=== PATIENT | male | born 1950 | race Caucasian/White ===

== ENCOUNTER → 2023-11-26 06:25 | Outpatient (REF) | payer MEDICARE, OTHER, SELFPAY ==
[2023-11-26 08:26] LABS: Calcium 10.4 mg/dl (8.4-10.2)
[2023-11-27 09:14] LABS: Intact PTH 49.7 pg/ml (13.6-85.8)
== END ==
LOC: RAD 06:25
PROVIDERS: ATTENDING PHYSICIAN Physician Assistant
DX: E83.52 Hypercalcemia (principal); K59.09 Other constipation
CPT/HCPCS: 36415; 74018; 83970

== ENCOUNTER → 2024-02-14 06:23 | Outpatient (REF) | payer MEDICARE, OTHER, SELFPAY ==
[2024-02-14 07:29] LABS: ALT (SGPT) 20 U/L (0-50); AST (SGOT) 22 U/L (17-59); Albumin 4.5 g/dl (3.5-5.0); Alkaline Phosphatase 76 U/L (38-126); Blood Urea Nitrogen 23 mg/dl (9-20); Calcium 10.8 mg/dl (8.4-10.2); Carbon Dioxide 22 mmol/L (22-30); Chloride 104 mmol/L (98-107); Glucose 150 mg/dl (70-99); HDL Cholesterol 40 mg/dl; LDL Cholesterol, Calculated 56 mg/dl; Potassium 5.3 mmol/L (3.5-5.1); Sodium 138 mmol/L (135-145); Total Bilirubin 0.4 mg/dl (0.2-1.3); Total Cholesterol 128 mg/dl (50-199); Triglyceride 163 mg/dl (10-149); Very Low Density Lipoprotein 32 mg/dl (0-30); eGFR > 60.00
[2024-02-14 07:46] LABS: Microalbumin, Random Urine 10.2 mg/dl (0.6-1.7); Microalbumin/creatinine Ratio 207.7 mg/g
[2024-02-14 09:30] LABS: Glycohemoglobin (HgbA1c) 7.5 % (4.0-5.6)
== END ==
LOC: REG 06:23
PROVIDERS: ATTENDING PHYSICIAN Physician Assistant
DX: E11.65 Type 2 diabetes mellitus with hyperglycemia (principal); E78.2 Mixed hyperlipidemia
CPT/HCPCS: 36415; 80053; 80061; 82043; 82570; 83036

== ENCOUNTER → 2024-02-18 07:21 | Outpatient (REF) | payer MEDICARE, OTHER, SELFPAY ==
[2024-02-18 09:02] LABS: ALT (SGPT) 17 U/L (0-50); AST (SGOT) 20 U/L (17-59); Albumin 4.4 g/dl (3.5-5.0); Alkaline Phosphatase 75 U/L (38-126); Blood Urea Nitrogen 22 mg/dl (9-20); Calcium 10.7 mg/dl (8.4-10.2); Carbon Dioxide 24 mmol/L (22-30); Chloride 106 mmol/L (98-107); Glucose 156 mg/dl (70-99); Sodium 140 mmol/L (135-145); Total Bilirubin 0.4 mg/dl (0.2-1.3); Total Protein 7.8 g/dl (6.3-8.2); eGFR > 60.00
[2024-02-18 09:11] LABS: Potassium 5.6 mmol/L (3.5-5.1)
[2024-02-18 09:16] LABS: Vitamin D, 25-OH*** 40.1 ng/mL (30-80)
[2024-02-18 09:35] LABS: TSH Reflex To Free T4 5.36 uIU/ml (0.47-4.68)
[2024-02-18 10:04] LABS: Free T4 1.07 ng/dl (0.78-2.19)
[2024-02-18 16:07] LABS: Intact PTH 52.4 pg/ml (13.6-85.8)
== END ==
LOC: REG 07:21
PROVIDERS: ATTENDING PHYSICIAN Physician Assistant
DX: E83.52 Hypercalcemia (principal); E87.5 Hyperkalemia
CPT/HCPCS: 36415; 80053; 82306; 83970; 84439; 84443

== ENCOUNTER → 2024-11-10 08:55 | Outpatient (REF) | payer MEDICARE, OTHER, SELFPAY ==
[2024-11-10 10:20] LABS: ALT (SGPT) 15 U/L (0-50); AST (SGOT) 20 U/L (17-59); Albumin 4.4 g/dl (3.5-5.0); Alkaline Phosphatase 60 U/L (38-126); Blood Urea Nitrogen 18 mg/dl (9-20); Calcium 9.8 mg/dl (8.4-10.2); Carbon Dioxide 26 mmol/L (22-30); Chloride 104 mmol/L (98-107); Glucose 131 mg/dl (70-99); HDL Cholesterol 55 mg/dl; LDL Cholesterol, Calculated 65 mg/dl; Potassium 4.3 mmol/L (3.5-5.1); Sodium 140 mmol/L (135-145); Total Bilirubin 0.5 mg/dl (0.2-1.3); Total Cholesterol 148 mg/dl (50-199); Total Protein 7.2 g/dl (6.3-8.2); Triglyceride 143 mg/dl (10-149); Very Low Density Lipoprotein 28 mg/dl (0-30); eGFR > 60.00
[2024-11-10 16:37] LABS: Microalbumin, Random Urine > 57.0 mg/dl (0.6-1.7)
== END ==
LOC: REG 08:55
PROVIDERS: ATTENDING PHYSICIAN Family Medicine
DX: E11.59 Type 2 diabetes mellitus with other circulatory complications (principal); E78.2 Mixed hyperlipidemia; I10 Essential (primary) hypertension
CPT/HCPCS: 36415; 80053; 80061; 82043; 82570; 83036

== ENCOUNTER → 2025-05-15 08:37 | Outpatient (REF) | payer MEDICARE, OTHER, SELFPAY ==
[2025-05-15 11:02] LABS: PSA, Total - Diagnostic 0.40 ng/ml (0.0-4.0)
== END ==
LOC: REG 08:37
PROVIDERS: ATTENDING PHYSICIAN Specialist; FAMILY PHYSICIAN Family Medicine
DX: C61 Malignant neoplasm of prostate (principal)
CPT/HCPCS: 36415; 84153

== ENCOUNTER → 2025-06-14 07:29 | Outpatient (REF) | payer MEDICARE, OTHER, SELFPAY ==
[2025-06-14 07:51] LABS: Urine Character Bloody (Clear)
[2025-06-14 08:29] LABS: Urine Squamous Cell None seen /LPF (Few)
[2025-06-14 08:30] LABS: Urine Red Blood Cell >100 /HPF (0-2)
[2025-06-14 08:32] LABS: Urine White Cell 0-2 /HPF (0-5)
== END ==
LOC: REG 07:29
PROVIDERS: ATTENDING PHYSICIAN Specialist; FAMILY PHYSICIAN Family Medicine
DX: N39.0 Urinary tract infection, site not specified (principal)
CPT/HCPCS: 81003; 81015; 87086; 87147; 87186

== ENCOUNTER → 2025-09-04 06:51 | Outpatient (REF) | payer MEDICARE, OTHER, SELFPAY ==
[2025-09-04 08:30] LABS: ALT (SGPT) 13 U/L (0-50); AST (SGOT) 15 U/L (17-59); Albumin 4.4 g/dl (3.5-5.0); Alkaline Phosphatase 59 U/L (38-126); Blood Urea Nitrogen 19 mg/dl (9-20); Calcium 10.1 mg/dl (8.4-10.2); Carbon Dioxide 24 mmol/L (22-30); Chloride 105 mmol/L (98-107); Glucose 127 mg/dl (70-99); Potassium 4.2 mmol/L (3.5-5.1); Sodium 138 mmol/L (135-145); Total Protein 6.9 g/dl (6.3-8.2); Very Low Density Lipoprotein 29 mg/dl (0-30); eGFR > 60.00
[2025-09-04 08:39] LABS: HDL Cholesterol 46 mg/dl; LDL Cholesterol, Calculated 57 mg/dl
[2025-09-04 11:02] LABS: Glycohemoglobin (HgbA1c) 6.1 % (4.0-5.9)
== END ==
LOC: REG 06:51
PROVIDERS: ATTENDING PHYSICIAN Family Medicine; REFERRING PHYSICIAN Specialist
DX: E11.59 Type 2 diabetes mellitus with other circulatory complications (principal)
CPT/HCPCS: 36415; 80053; 80061; 83036

== ENCOUNTER 2025-10-12 21:27 | Inpatient (IN) | payer MEDICARE, OTHER, SELFPAY ==
[2025-10-12] VITALS (10 sets, daily range): BP systolic 121–168; BP diastolic 70–106; BMI 33.6; BMI 33.5
[2025-10-12 14:50] LABS: ALT (SGPT) 14 U/L (0-50); AST (SGOT) 19 U/L (17-59); Albumin 3.6 g/dl (3.5-5.0); Alkaline Phosphatase 74 U/L (38-126); Blood Urea Nitrogen 32 mg/dl (9-20); Calcium 9.9 mg/dl (8.4-10.2); Carbon Dioxide 23 mmol/L (22-30); Chloride 103 mmol/L (98-107); Glucose 178 mg/dl (70-99); Lipase 14 U/L (23-300); Potassium 4.3 mmol/L (3.5-5.1); Sodium 133 mmol/L (135-145); Total Protein 6.8 g/dl (6.3-8.2); eGFR > 60.00
[2025-10-12 14:52] LABS: Hematocrit 35.8 % (39.0-52.0); Hemoglobin 12.0 g/dL (13.0-18.0); Mean Corp Hgb Conc. 33.5 g/dL (33.0-37.0); Mean Corpuscular Volume 91.3 fL (80.0-94.0); Nucleated Red Blood Cells % 0 % (-); Platelet Count 183 10^3/uL (130-400); Red Cell Dist. Width 14.2 % (11.5-14.5)
[2025-10-12 14:59] LABS: COVID-19 Antigen Negative (Negative)
[2025-10-12 17:30] LABS: Urine Character Cloudy (Clear)
--- NOTE | 2025-10-12 17:31 | ED.GENMED ---
History of Present Illness
General
Chief Complaint: Fever
Source: patient
Exam Limitations: none
Time Seen by Provider: 10/12/25 16:33
Nursing documentation reviewed up to this point in time: agreed with
History of Present Illness
History of Present Illness:
The patient is a 74-year-old man who has a neurogenic bladder and self caths. Patient reports 3 days of decreased appetite, generalized weakness and chills. Patient last had Tylenol around 10 AM this morning. Patient reports bilateral low back
pain. His reports his urine is very foul-smelling which is unusual. He denies worsening cough or shortness of breath. He denies headache and sore throat.
Past History
Past History
ED Past Medical History: CVA, HTN, Hypercholesterolemia and NIDDM
ED Past Surgical History: Other (Hernia)
Social History
Tobacco: Non-smoker
Alcohol: None
Drug: None
Personal:
Living: with family
Employment: Retired
Family History
Family History: Other
Review of Systems
Review of Systems
Allergies reviewed?: Yes
All Other Systems: ROS reviewed and negative except as documented in HPI and ROS
Constitutional: Reports fever, fatigue and chills
EENT: Reports no symptoms
Respiratory: Reports no symptoms
Cardiac: Reports no symptoms
ABD/GI: Reports nausea and anorexia
: Reports other (Foul-smelling urine)
Musculoskeletal: Reports no symptoms
Skin: Reports no symptoms
Neurological: Reports no symptoms
Endocrine: Reports no symptoms
Hematologic/Lymphatic: Reports no symptoms
Psychiatric: Reports no symptoms
Phy Exam
Physical Exam
Physical Exam:
Physical Exam
General: no apparent distress, not acutely ill
Neck: supple. no meningeal signs. normal psoterior pharynx
Heart: Tachycardic, irregular
Lungs: no acute respiratory distress. clear bilaterally
Abdomen: normal bowel sounds. not tender. no CVAT
Neuro: alert and oriented. no focal neurological deficits
Skin: no rash
Psychiatric: well kept. interactive and cooperative
Extremities: no edema. no calf tenderness. negative homans. good distal pulses
Sepsis
Sepsis Screening
Sepsis Assessment: Sepsis Ruled Out
Sepsis Screen
Sepsis Screen: Sepsis Ruled Out
Date: 10/12/25
Time: 20:41
Course
Orders/Labs/Results
Orders:
Orders
10/12/25 14:26
COVID-19 Antigen Urgent
Source: Nasal Swab
Complete Blood Count/With Diff Urgent
Comprehensive Metabolic Panel Urgent
Lipase Urgent
TSH Reflex To Free T4 Urgent
Comment: ADD ON
Influenza A+B Rapid Molecular Urgent
MATTHEW Source: Nasal Swab
Specimen Description:
10/12/25 17:21
Urinalysis Reflex To Culture Urgent
Date Specimen was Collected: 10/12/25
Time Specimen was Collected: 17:19
Urine Microscopic Reflex Cult Urgent
Urine Culture Urgent
MATTHEW Source: U
Specimen Description:
Date Specimen was Collected: 10/12/25
Time Specimen was Collected: 17:19
10/12/25 17:31
0.9% Sodium Chloride 1000 ml [Nss] 1,000 ml IV BOLUS
10/12/25 17:39
Electrocardiogram (*1) Urgent
Reason for Study: Tachycardia
10/12/25 17:40
EKG- Treatment ONCE
10/12/25 18:29
CefTRIAXone [Rocephin] 1,000 mg IV NOW STA
10/12/25 18:30
CT Abd/pel Without Iv Or Oral Urgent
Comment:
Reason For Exam: UTI, back pain
10/12/25 19:59
Heparin 4,000 units IV NOW STA
10/12/25 20:00
Heparin 17180 Units/250 ml 25,000 units in 250 ml IV PER PROTOCOL
Weight to be used for heparin protocol in kilograms (kg):: 109.3
Protocol:: Cardiac Tx/Acute Coronary
PTT Goal Range to be used:: PTT 73 to 111 seconds
Order type:: Initial
INITIAL Infusion Dose (UNITS/KG/hr) & then follow protocol:: 12 units/kg/hr
Infusion Dose in UNITS/hr & then follow protocol (UNITS/hr):: 1,000
INFUSION RATE in mL/hr & then follow protocol (mL/hr):: 10
PTT less than or equal to 64 seconds:: Increase rate by 200 units/hr (+ 2 mL/hr)
PTT 64.1 to 72.9 seconds:: Increase rate by 100 units/hr (+ 1 mL/hr)
PTT 73 to 111 seconds:: Target Range. No change in rate.
PTT 111.1 to 130.9 seconds:: Decrease rate by 100 units/hr (- 1 mL/hr)
PTT 131 to 199.9 seconds:: HOLD for 1 hr. Then decrease rate by 200 units/hr (- 2 mL/hr)
PTT greater than or equal to 200 seconds:: HOLD for 2 hrs & Notify Provider. Then decrease by 200 units/hr (-
2 mL/hr)
Lab follow-up:: Each change, PTT q6h until 2 consecutive are therapeutic. Then PTT
daily.
Nursing to Place Non Medication Order As Directed
Physician Order: PTT 6 hours after initial start of Heparin infusion
Above order entered?: Yes
10/12/25 20:15
PTT Urgent
Comment: Obtain baseline before beginning heparin infusion if not already collected
10/12/25 20:23
Add On- LAB Urgent
Tests Added?: tsh with free t4 reflex
Bladder Scan As Directed
Follow Bladder Retention/Intermittent Cath Algorithm?: Yes
PRN if no void in __ hours: 6
Frequency: Per Retention Algorithm
If Bladder Scan Result >: 400
then:: Straight cath
Straight Cath As Directed
Frequency: Per Retention Algorithm
Additional Instructions: straight cath as needed per acute urinary retention algorithm for 24 hrs
Additional Instructions: for bladder scan greater than 400 mL
10/12/25 20:37
CARDIOLOGY CONSULT Routine
Consulting Provider: Edwardo Nye
Was physician already notified: Yes
Reason for consult: new onset afib
10/12/25 20:38
UROLOGY CONSULT Routine
Consulting Provider: Ruben Fox
Was physician already notified: Yes
Comment: uti/pyelo/neurogenic bladder self caths
10/13/25 02:31
PTT Routine
Abnormal Lab Results
10/12/25 10/12/25
14: 17:21
RBC 3.92 L 10^6/uL
(4.70-6.10)
Hgb 12.0 L g/dL
(13.0-18.0)
Hct 35.8 L %
(39.0-52.0)
MPV 11.1 H fL
(7.4-10.4)
Absolute Neuts (auto) 7.6 H 10^3/uL
(1.4-6.5)
Absolute Lymphs (auto) 0.3 L 10^3/uL
(1.2-3.4)
Neutrophils % 89.0 H %
(42.2-75.2)
Lymphocytes % 2.9 L %
(20.5-51.1)
Sodium 133 L mmol/L
(135-145)
BUN 32 H mg/dl
(9-20)
Glucose 178 H mg/dl
(70-99)
Lipase 14 L U/L
(23-300)
Ur Occult Blood Reflex 3+ A
(Negative)
Leukocyte Esterase Rfl 2+ A
(Negative)
Urine WBC (Reflex) 16-20 A /HPF
(0-5)
Urine Bacteria (Reflex) Many A
(Negative)
Urine Albumin (Reflex) 4+ A
(Neg - Trace)
10/12/25 14:26
10/12/25 14:26
Vital Signs
Initial and Last Documented VS:
Initial Vital Signs
Temp Pulse Resp BP Pulse Ox
100.7 F H 111 18 137/82 94
10/12/25 14:13 10/12/25 14:13 10/12/25 14:13 10/12/25 14:13 10/12/25 14:13
Last Documented Vital Signs
Temp Pulse Resp BP Pulse Ox
97.7 F 111 18 121/76 97
10/12/25 16:42 10/12/25 14:13 10/12/25 14:13 10/12/25 18:28 10/12/25 18:30
MDM/Problems Addressed
Differential Diagnosis Includes:
Acute UTI, acute influenza, pneumonia
MDM/Problems Addressed:
Patient presents with acute chills and fever and foul-smelling urine
Chronic conditions affecting care:
Neurogenic bladder
Acute Exacerbation and/or Progression of Chronic Illness:
Patient may have acute UTI from chronic urinary retention
*Radiology
Radiology exam reviewed: radiology read reviewed
*Pulse Oximetry
SaO2: 95
Oxygen Mode of Delivery: Room air
Patient hypoxic: no
*EKG
Interpreted by ED Provider?: Yes
Interpretation: abnormal
Comparison EKG: changes noted
Rate: tachycardiac
Rhythm: a-fib
M[place]: left axis deviation
Interval: normal interval
QRS Pattern: normal QRS
Ischemia: non-specific ST changes
*Employee Benefits Coordinator Interpretation
Rate: tachycardiac
Interpretation: abnormal
Rhythm: a-fib
*Critical Care Note
Total Time (30-74mins, 75-104mins- exclusive of procedures): 35 minutes
comment:
35 minutes critical care given to patient including frequent reassessments of his heart rate, blood pressure, reviewing his CT report with the patient as well as discussing A-fib with the patient
Data Reviewed
Review of Other/Old Records Reveals: Radiology Studies (Abdominal x-ray reviewed by me from 2023. Shows constipation)
Source: patient and spouse
Patient Management
Social determinants of health affecting care: Living situation and Strong social support
ED Attending Note
-
Portions of this chart may have been created with voice recognition software.� Occasional wrong word or��sound alike� substitutions may have occurred due to the inherent limitations of voice recognition software.
Discharge Plan
Departure
Patient Disposition: Admit
Date of Disposition: 10/12/25
Time of Disposition: 20:00
Admit to: Med/Surg
Presentation/result/management discussed w/ accepting MD/DO: Hospitalist
Patient with high blood pressure during this ER visit?: Yes
Condition: Good
Covid-19: Not Applicable
Discharge Problem:
UTI (urinary tract infection), Acute left hydronephrosis, New onset a-fib
Prescriptions:
No Action
insulin degludec [Tresiba FlexTouch U-100] 100 UNIT/ML insulin pen
10 units SC DAILY
Referrals:
Jason Echeverria MD [Family Provider, Family Practice]
Interventions
Interventions:
*General Assessment Last Done: 10/12/25 14:13
*ED COVID-19 Vaccine History Last Done: 10/12/25 14:13
*ED Influenza Vaccine History Last Done: 10/12/25 14:13
[facility] Fall Risk Assessment Tool Last Done: 10/12/25 16:50
*Risk Screen - Suicide (C-SSRS) Last Done: 10/12/25 14:13
ED- Neurological Assessment Last Done: 10/12/25 16:50
ED-Skin Assessment Last Done: 10/12/25 16:50
Discharge Date and Time
Print Language: SAO TOMEAN
[2025-10-12] MEDS: NSS 1000 IV ×2 (17:39→23:33)
[2025-10-12 17:56] LABS: Urine Red Blood Cell 0-2 /HPF (0-2); Urine Squamous Cell 0-2 /LPF (Few); Urine White Cell 16-20 /HPF (0-5)
[2025-10-12] MEDS: ROCEPHIN 1000 MG IV (18:56)
--- NOTE | 2025-10-12 20:19 | HPS.HSE ---
Addendum entered and electronically signed by Major Dubon MD 10/12/25 21:24:
This is an addendum to H&P written by Sobia Fair on 10/12/2025. �Patient seen examined independently with SKI TECHNICIAN.
74-year-old male past medical history of prostate cancer s/p radiation,� neurogenic bladder and self catheterizes, hypertension, hypercholesteremia, diabetes, CVA, presenting with 3 days of decreased appetite, generalized weakness and chills.
�Bilateral lower back pain. �Foul-smelling urine and blood in urine.�
Vitals show fever of 100.7. �Tachycardia 111.
Labs unremarkable. �Urinalysis shows 16-20 WBC, +2 leukocyte esterase, +[address] abdomen pelvis shows moderate to marked left hydroureteronephrosis. �No ureteral calculus. �Possible subtle focal wall thickening at the left utero vesicular junction. �Perinephric soft tissue stranding left greater than right.
EKG showed new onset atrial fibrillation with rate up to 105.
Patient with UTI/pyelonephritis with significant left hydroureteronephrosis unclear etiology. �Urine culture, blood cultures, IV fluids, ceftriaxone. �Urology consulted. �Bladder scan protocol.
New onset atrial fibrillation secondary to fever. �Heparin drip started. �Check echocardiogram and TSH. �Cardiology consulted.
Original Note:
Family Physician
-
Family Physician: Jason Echeverria
Chief Complaint
-
Fever, chills, foul-smelling urine
History of Present Illness
74-year-old male with history of neurogenic bladder who self caths at night only. He reports a 3-day history of decreased appetite with generalized weakness , fever, chills he also reports foul-smelling urine which is unusual for him. He took
Tylenol this morning at 10 AM for bilateral lower back pain. He denies headache, sore throat, fever, chest pain, palpitations, cough, shortness of breath, abdominal pain, nausea, vomiting, diarrhea. He has past medical history of neurogenic
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
Medical History
Past Medical History
Past Medical History: Reports Other
Additional Past Medical History:
neurogenic bladder requiring self cath
prostate cancer status post radiation 8 years ago
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
HTN
HLD
DM 2
diabetic neuropathy
Chronic ambulatory dysfunction uses cane at baseline
Chronic back/right hip pain
Past Surgical History: Reports Other
Additional Past Surgical History:
Radiation therapy to prostate 8 years ago
Right knee meniscus repair
Nasal polypectomy
Hernia repair x 2
Social History
Tobacco: Non-smoker
Alcohol: None
Drug: None
Personal:
Living: With Family ()
Employment: Retired
Family History
Family History: Not pertinent
Allergies / Home Medications
Allergies reflects when Allergies were last updated in [facility].
Home Medications with original date entered in [facility]
Allergy/Medication List:
Allergies
Allergy/AdvReac Type Severity Reaction Status Date / Time
Sulfa (Sulfonamide Allergy Unknown Verified 10/12/25 14:18
Antibiotics)
Home Medications
Aspir-81 81 mg PO DAILY 10/12/25
Lipitor 40 mg PO HS 10/12/25
Tylenol Arthritis 1,000 mg PO BID 10/12/25
amlodipine 10 mg tablet mg 10/12/25
diclofenac potassium 25 mg PO BID PRN arthritic pain 10/12/25
lisinopril 2.5 mg tablet 2.5 mg PO DAILY 10/12/25
metformin 1,000 mg tablet 1,000 mg PO BID 10/12/25
tamsulosin 0.4 mg capsule 0.4 mg PO DAILY 10/12/25
Review of Systems
-
History Source: Patient and Family ( at bedside)
A 12 point ROS was completed and negative except as noted: Yes
Constitutional: Reports Fever and Chills
EENT: Denies Sore Throat or Runny Nose
Respiratory: Denies Cough or Trouble Breathing
Cardiac: Denies Chest Pain, Diaphoresis, Palpitations or Syncope
Abdomen/GI: Reports Nausea; Denies Abdominal Pain, Vomiting, Diarrhea, Constipated or Bloody Stools
: Reports Dark Urine (Maroon in color per foul-smelling)
Musculoskeletal: Denies Joint Pain or Edema
Skin: Denies Itching or Rash
Neurological: Denies Dizzy, Headache or Weakness
Endocrine: Reports No Symptoms
Hematologic/Lymphatic: Reports No Symptoms
Psych: Reports Calm
Physical Exam
Vital Signs
Vital Signs
Temp Pulse Resp BP Pulse Ox
97.7 F 111 18 121/76 97
10/12/25 16:42 10/12/25 14:13 10/12/25 14:13 10/12/25 18:28 10/12/25 18:30
Physical Exam
General: Fever and Chills
HEENT: NormoCephalic, Anicteric, Moist mucous membranes, PERRLA, Pioneer Conjunctivae and No Ptosis
Respiratory: Clear; No Wheezes, Rales or Rhonchi
Cardiac: S1/S2 and Irregular Rhythm (A-fib HR 111 bpm); No Murmur, Rub, Gallop or Peripheral Edema
Breast: Deferred by me
GI: Soft, Non Tender, Non Distended, Normal Bowel Sounds and No Hepatosplenomegaly
Genito-urinary: No costovertebral tender
Musculoskeletal: No Clubbing, No Cyanosis and No Edema
Skin: Warm and Dry; No Rash
Neuro: AO x 3, No Motor Deficits, Nonfocal/grossly intact, Cranial Nerves Intact and No Sensory Deficits; No Slurred Speech, Facial Droop, Tremors or Sedated
Psych: Calm
Laboratory Results
-
10/12/25 14:26
10/12/25 14:26
Laboratory Results
Total Bilirubin 0.6 mg/dl (0.2-1.3) 10/12/25 14:
AST 19 U/L (17-59) 10/12/25 14:26
ALT 14 U/L (0-50) 10/12/25 14:26
Alkaline Phosphatase 74 U/L (38-126) 10/12/25 14:
Lipase 14 U/L (23-300) L 10/12/25 14:26
Data Reviewed
-
CT Scan: Report Reviewed by me
Lab Data: Labs Reviewed by me
Impression/Plan
-
Impression/plan:
Admit to [facility]
# UTI/pyelonephritis/moderate left hydroureteronephrosis with history Neurogenic bladder/self caths
History of prostate cancer status post radiation 8 years ago
UA +2 leukocyte, WBC 16�20, many bacteria +3 blood
100.7 F,HR 111
-Patient straight caths once a day evening current straight cath 650 cc in ER this evening 10/12/2025
-IV NSS 1 L given in ER
-IV Rocephin
-Tylenol as needed
-Continue Flomax
-Consult urology-Dr. Fox aware patient may straight cath
- Follow urine culture, CBC, CMP, blood cultures x 2
CT abdomen pelvis without IV or oral contrast:
1. Moderate to marked left hydroureteronephrosis. No ureteral calculus.
Exact etiology uncertain.
Possible subtle focal wall thickening at the left ureterovesical junction. No bladder calculus.
2. Perinephric soft tissue stranding, left greater than right. Cannot exclude proposed infection.
3. Vascular calcification versus nonobstructing intrarenal calculi, bilaterally.
4. Bilateral renal cysts, as described.
5. Tiny foci of gas within the urinary bladder. Possible considerations include infection, recent instrumentation, or enterovesical fistula. Clinical correlation necessary.
6. Diverticulosis without acute diverticulitis. No bowel obstruction.
7. Scoliosis. Advanced multilevel discogenic and facet degenerative changes. No compression deformity.
#New onset A-fib
HR 111 bpm
-IV heparin drip
-Consult cardiology
- 2D echo
- TSH with free T4 reflex
#DM 2
Diabetic neuropathy
Accu-Cheks with SSI, check HgbA1c
Hold metformin at 1000 mg twice daily
#HTN
BP 121/76
-Continue lisinopril, amlodipine
#HLD
-Continue atorvastatin
#CVA 18 years ago with chronic short-term memory impairment
-Continue atorvastatin, aspirin 81 mg daily
#Arthritis
-Patient takes diclofenac potassium 25 mg twice daily as needed pain
-Patient takes Tylenol 1000 mg twice daily scheduled
#Chronic ambulatory dysfunction uses cane at baseline
DVT prophylaxis
IV heparin drip
Full code
[2025-10-12] MEDS: HEPARIN 4000 UNITS IV (20:30)
[2025-10-12] MEDS: HEPARIN 25000 UNITS/250 ML IV (20:31)
[2025-10-12 20:34] LABS: APTT 31.8 Sec (23.4-35.0)
[2025-10-12] MEDS: TYLENOL 650 MG PO (23:32)
[2025-10-12 23:39] LABS: Glucose - Point of Care 149 mg/dl (70-99)
--- NOTE | 2025-10-13 02:35 | PTCARENOTE ---
Pt is aaox3, no c/o pain. pt has new afib - reviewed and provided afib educational packet. pt [id number], irregular. pt is on heparin gtt. labs to be drawn later. reviewed plan of care w/ patient and . pt oriented to room w/ call tian in reach.
[2025-10-13 03:16] LABS: APTT 39.7 Sec (23.4-35.0)
[2025-10-13 03:41] VITALS: BP 128/87
--- NOTE | 2025-10-13 06:28 | PTCARENOTE ---
pt voided 300ml. bladder scan for 818ml. offered to straight cath patient. pt refused stating that he doesn't feel uncomfortable and usually only does it at nighttime. pt agreeable to being bladder scan and straight cath later if unable to void, and
or starts to feel uncomfortable.
[2025-10-13 07:13] VITALS: BP 148/91
--- NOTE | 2025-10-13 08:25 | CONS.URO ---
Consultation
-
Date/Time Consultation Requested: 10/13
Date/Time Consultation Performed: 10/13
Performing Provider: Ruddy
Reason for Consultation: cUTI
Medical History
History of Present Illness
74M presents to [facility] ED w/ 3 day h/o anorexia, generalized weakness, fevers, chills, foul-smelling (atypical for him per patient).
Noted bilateral lower back pain in AM on 10/12 - after calling Urology office, he was directed to ED for evaluation.
H/o neurogenic bladder on CIC w/o issues.
Notes no h/o rUTIs while on CIC - performs self-cath qhs only w/ volitional voiding in between.
Past Medical History
Past Medical History: Cancer (prostate cancer), CVA, HTN, NIDDM and Other (diabetic neuropathy, HLD, chronic ambulatory dysfunction, chronic right hip/back pain, neurogenic bladder)
Past Surgical History: Orthopedic (right knee meniscus repair) and Other (hernia repair x2, nasal polypectomy)
Social History
Tobacco: Non-smoker
Alcohol: None
Drug: None
Personal:
Living: With Family
Employment: Retired
Family History
Family History: Reviewed & Not Pertinent
Allergies/Home Medications
Allergies
Allergy/AdvReac Type Severity Reaction Status Date / Time
Sulfa (Sulfonamide Allergy Unknown Verified 10/12/25 14:18
Antibiotics)
Home Medications
�Medication �Instructions �Recorded �Confirmed �Type
Aspir-81 81 mg PO DAILY 10/12/25 10/12/25 History
Lipitor 40 mg PO HS 10/12/25 10/12/25 History
Tylenol Arthritis 1,000 mg PO BID 10/12/25 10/12/25 History
amlodipine 10 mg tablet 10 mg PO DAILY 10/12/25 10/12/25 History
diclofenac potassium 25 mg PO BID PRN arthritic pain 10/12/25 10/12/25 History
lisinopril 2.5 mg tablet 2.5 mg PO DAILY 10/12/25 10/12/25 History
metformin 1,000 mg tablet 1,000 mg PO BID 10/12/25 10/12/25 History
tamsulosin 0.4 mg capsule 0.4 mg PO DAILY 10/12/25 10/12/25 History
Review of Systems
-
History Source: Patient
A 12 point Review of Systems was completed except as noted: Yes
Physical Exam
Vital Signs
Vital Signs
Temp Pulse Resp BP Pulse Ox
98.9 F 100 18 148/91 94
10/13/25 07:13 10/13/25 07:13 10/13/25 07:13 10/13/25 07:13 10/13/25 07:13
Physical Exam
General: Well Developed, Well Nourished and Poor Appetite
HEENT: Normocephalic and Anicteric
Respiratory: Non Labored Respirations
Breast: N/A
GI: Soft, Non Tender and Non Distended
Rectal: Deferred by Provider
Genito-urinary: Clear Urine
Musculoskeletal: No Edema
Skin: Warm and Dry
Neuro: AO x 3 and Nonfocal/Grossly Intact
Hematologic/Lymphatic: No Lymphadenopathy
Psych: Calm and Intact Judgement
Assessment / Plan
-
cUTI
H/o neurogenic bladder (asensate areflexic bladder on VUDS 05/2025)
H/o prostate cancer s/p XRT
New onset a-fib
WBC WNL
Cr WNL
UA +WBCs
UCx pending
CTAP w/o IV => marked left hydroureteronephrosis down to level of bladder w/o gross evidence of obstructing mass/stone/stricture
Given normal renal function, no indication for intervention for hydronephrosis - possibly secondary to reflux from known NGB.
- Advise CIC q6 hrs while inpatient at time of discharge (3-4 times daily)
- Continue IV antibiotics pending UCx sensitivities
- Plan for outpatient CT Urogram and F/U w/ Dr. Tamez after discharge
D/w patient.
D/w Hospitalist.
Data Reviewed
-
Total Time Spent with Patient (in minutes): 30
CT Scan: Image personally visualized and interpreted, Report Reviewed by Me, Discussed with Physician and Discussed with Patient
Lab Data: Labs Reviewed, Discussed with Physician and Discussed with Patient
Old Records: Reviewed
--- NOTE | 2025-10-13 08:55 | PTCARENOTE ---
pt aox3, states at times he has short term memory loss from old cva, 17y ag. pt tachy hr 110-130's, pt is asymptomatic, denies sob, chest pain, dizziness, n/v. hep gtt continues, call tian in reach
[2025-10-13 09:00] LABS: Glucose - Point of Care 126 mg/dl (70-99)
[2025-10-13] MEDS: NOVOLOG FLEXPEN-LOW RESISTANCE SC (09:33)
[2025-10-13] MEDS: NORVASC 10 MG PO (09:34)
[2025-10-13] MEDS: ZESTRIL 2.5 MG PO (09:34)
[2025-10-13] MEDS: FLOMAX 0.4 MG PO (09:34)
[2025-10-13] MEDS: ASPIR LOW (ENTERIC COATED) 81 MG PO (09:34)
[2025-10-13 09:43] LABS: APTT 42.4 Sec (23.4-35.0)
[2025-10-13 09:44] LABS: Hematocrit 36.9 % (39.0-52.0); Hemoglobin 12.4 g/dL (13.0-18.0); Mean Corp Hgb Conc. 33.6 g/dL (33.0-37.0); Mean Corpuscular Volume 91.6 fL (80.0-94.0); Nucleated Red Blood Cells % 0 % (-); Platelet Count 218 10^3/uL (130-400); Red Cell Dist. Width 14.1 % (11.5-14.5)
[2025-10-13 09:52] LABS: ALT (SGPT) 17 U/L (0-50); AST (SGOT) 22 U/L (17-59); Albumin 3.7 g/dl (3.5-5.0); Alkaline Phosphatase 70 U/L (38-126); Blood Urea Nitrogen 27 mg/dl (9-20); Calcium 9.6 mg/dl (8.4-10.2); Carbon Dioxide 19 mmol/L (22-30); Chloride 105 mmol/L (98-107); Estimated Creatinine Clearance 100 ml/min; Glucose 139 mg/dl (70-99); HDL Cholesterol 33 mg/dl; LDL Cholesterol, Calculated 42 mg/dl; Potassium 3.8 mmol/L (3.5-5.1); Sodium 135 mmol/L (135-145); Total Protein 6.9 g/dl (6.3-8.2); Very Low Density Lipoprotein 32 mg/dl (0-30); eGFR > 60.00
--- NOTE | 2025-10-13 10:08 | CON.CAR ---
Addendum entered and electronically signed by Edwardo Nye MD 10/13/25 15:09:
I reviewed and agree with the note by MELVI Lai and it accurately reflects our care.
I saw and evaluated the patient, and I provided the substantive portion of the medical decision making. My assessment and plan is below:
74-year-old man with hypertension, hyperlipidemia, diabetes, obesity, CVA in 2006, and neurogenic bladder who presents with back pain found to have UTI and hydroureteronephrosis. Cardiology is consulted due to concern for new atrial fibrillation.
He denies palpitations, chest discomfort, and shortness of breath. I reviewed his twelve-lead ECG and telemetry since admission. I do not see any evidence of atrial fibrillation; telemetry appears consistent with multifocal atrial tachycardia.
Physical exam: Irregular rate/rhythm, + systolic murmur, clear lungs, no lower extremity edema
ECG: Multifocal atrial tachycardia, HR 105 bpm
TTE 07/01/2023: LVEF 53%, no VHD
Multifocal atrial tachycardia: Does not require anticoagulation. Stop heparin drip. He is asymptomatic so technically does not require treatment but given elevated BP and heart rates, it is reasonable to start metoprolol succinate 50 mg daily and
monitor.
Original Note:
Consultation
Consultation Request
Date/Time Consultation Requested: 10/12/25 8:40 PM
Date/Time Consultation Performed: 10/13/25 8:30 AM
Requesting Provider: MELVI Sierra
Performing Provider: MELVI Lai for Dr. Nye
Reason for Consultation: New onset A-fib
Medical History
-
Chief Complaint: Back pain
History of Present Illness:
Mr. Penn is a 74-year-old male with hypertension, dyslipidemia, obesity, neurogenic bladder requiring self cath, prostate cancer status post radiation, diabetes, and CVA in 2006, who presented to the ER with complaints of back pain. CT
abdomen/pelvis revealed left hydroureteronephrosis and UA+ UTI, he is admitted to the hospitalist service. We are consulted for new onset A-fib. EKG on admit with possible A-fib with RVR at 105 bpm, PVC and incomplete RBBB. He is asymptomatic and
unaware of any irregular heartbeats. He is currently on IV Heparin.
Past Medical History
Past Medical History: Other (As above)
Past Surgical History: Orthopedic
Social History
Tobacco: Non-Smoker
Living: With Family
Employment: Retired
Family History
Family History: Reviewed & Not Pertinent
Allergies / Home Medications
Allergy/AdvReac Type Severity Reaction Status Date / Time
Sulfa (Sulfonamide Allergy Unknown Verified 10/12/25 14:18
Antibiotics)
�Medication �Instructions �Recorded �Confirmed �Type
Aspir-81 81 mg PO DAILY 10/12/25 10/12/25 History
Lipitor 40 mg PO HS 10/12/25 10/12/25 History
Tylenol Arthritis 1,000 mg PO BID 10/12/25 10/12/25 History
amlodipine 10 mg tablet 10 mg PO DAILY 10/12/25 10/12/25 History
diclofenac potassium 25 mg PO BID PRN arthritic pain 10/12/25 10/12/25 History
lisinopril 2.5 mg tablet 2.5 mg PO DAILY 10/12/25 10/12/25 History
metformin 1,000 mg tablet 1,000 mg PO BID 10/12/25 10/12/25 History
tamsulosin 0.4 mg capsule 0.4 mg PO DAILY 10/12/25 10/12/25 History
Review of Systems
-
History Source: Patient
All other systems: Negative unless noted
Physical Exam
Vital Signs
Temp Pulse Resp BP Pulse Ox
98.9 F 100 18 148/91 94
10/13/25 07:13 10/13/25 07:13 10/13/25 07:13 10/13/25 07:13 10/13/25 07:13
Lab Results
10/13/25 09:23
10/13/25 09:23
Physical Exam
General: Well Developed, Well Nourished and No Apparent Distress
HEENT: Normocephalic, Anicteric and Moist Mucous Membranes
Respiratory: Clear and Non Labored Respirations
Cardiac: S1/S2 and Irregular Rhythm (PVCs/PACs)
Breast: Deferred by me
GI: Soft, Non Tender and Normal Bowel Sounds
Rectal: Deferred by Provider
Genito-urinary: Clear Urine
Musculoskeletal: No Clubbing, No Cyanosis and No Edema
Skin: Warm and Dry
Neuro: AO x 3
Hematologic/Lymphatic: No Lymphadenopathy
Psych: Calm
Impression / Plan
-
Possible Afib - new.
- EKG and telemetry tracings have P waves, with blocked PACs and PVCs.
- will review with EP cardiology, likely not Afib.
- on IV Heparin currently, will stop if no Afib seen.
- [id number] score is 6 (age, HTN, CVA, DM).
- check echo, will evaluate with outpatient transportation lead in follow up.
- will add Toprol 25mg daily and monitor.
UTI/hydroureteronephrosis - acute.
- per urology.
HTN - stable on meds, continue.
HLD - stable on meds, continue.
DM - per hospitalist.
CVA - in 2006.
- he thinks he was told he had an 'irregular heartbeat' and was on a blood thinner post CVA for 1 year.
Data Reviewed
-
EKG: Tracing Personally Visualized and interpreted
Radiology: Report Reviewed by me
Medical Tests (Nuc Med, Echo etc): Report Reviewed by me (echo 07/01/23: normal biventricular function w/o RWMA, no valve disease, mildly dilated ascending aorta.)
Labs: Labs Reviewed by me
Old Records: Reviewed
[2025-10-13] MEDS: TOPROL XL 25 MG PO (10:54)
[2025-10-13] MEDS: TYLENOL 650 MG PO (10:54)
[2025-10-13 11:00] VITALS: BP 145/89
[2025-10-13 12:39] LABS: Glucose - Point of Care 188 mg/dl (70-99)
[2025-10-13 12:43] LABS: Glycohemoglobin (HgbA1c) 6.2 % (4.0-5.9)
--- NOTE | 2025-10-13 13:15 | W.PN.HOSP.TC ---
Today's Communication/Plan
-
Assessment / Plan
Assessment / Plan
Acute pyelo/uti
Ucx
Bcx
IVAtb
Uro following
-CIC q6h while inpatient and 3-4 time a day post discharge
SR with PAC's/PVC's
Admitted for Afib new onset, after reviewing ekg, do not believe so, will await final Cards recs
Monitor on tele
Check 2d echo
Currently on Hep gtt, would appreciate cards input if this should be continued or not
DMII
ssi
hold metformin
accuchecks
[id number]
hld
conitnue statin
htn
conitnue antihjypertensive
chornic ambulatory dysfunction
use a cane at baseline
Anticipated Discharge: > 48 hours
Subjective/Interval History
-
Date of Service: October 13, 2025
seen and examined. no new complaints. no acute overnight events
Objective Data
-
Labs:
Laboratory Results
10/13/25 10/13/25 10/13/25
02:57 09:23 15:30
WBC 11.8 H
Hgb 12.4 L
Hct 36.9 L
Plt Count 218
APTT 39.7 H 42.4 H Pending
Sodium 135
Potassium 3.8
Chloride 105
Carbon Dioxide 19 L
BUN 27 H
Creatinine 0.8
Glucose 139 H
Calcium 9.6
Total Bilirubin 0.5
AST 22
ALT 17
Alkaline Phosphatase 70
Vital Signs:
Vital Signs
Temp Pulse Resp BP Pulse Ox
99.7 F 130 16 145/89 93
10/13/25 11:00 10/13/25 11:00 10/13/25 11:00 10/13/25 11:00 10/13/25 11:00
I&O
10/12/25 10/13/25 10/14/25
06:59 06:59 06:59
Output Total 1075 / 1075
Balance -1075 / -1075
Physical Exam
-
General: Well Nourished, No Apparent Distress and Comfortable
HEENT: Normocephalic and Atraumatic
Respiratory: Clear to Auscultation
Cardiac: S1/S2 and Irregular Rhythm
GI: Soft, Nontender and Nondistended
Genito-urinary: No Costovertebral Tender
Musculoskeletal: No Clubbing, No Cyanosis and No Edema
Neuro: Awake and AO x 3
Psych: Calm
[2025-10-13] MEDS: NOVOLOG FLEXPEN-LOW RESISTANCE 1 UNITS SC ×2 (13:29→17:46)
--- NOTE | 2025-10-13 13:59 | PTCARENOTE ---
per md pro, pt to self straight cath bid am and hs. alcazar aware, voiding without difficulty today, pt resting, call tian in reach
[2025-10-13] MEDS: ZOFRAN 4 MG IV (14:53)
--- NOTE | 2025-10-13 15:21 | PTCARENOTE ---
hep gtt dc'd per md order, patient medicated for nausea- states he has been nauseous on and off over the past few days. see dorian, resting, call tian in reach
[2025-10-13 15:33] VITALS: BP 143/94
[2025-10-13] MEDS: NSS 1000 IV (17:00)
[2025-10-13 17:11] LABS: Glucose - Point of Care 154 mg/dl (70-99)
[2025-10-13 19:50] VITALS: BP 139/88
[2025-10-13] MEDS: ROCEPHIN 1000 MG IV (20:18)
[2025-10-13] MEDS: STERILE WATER FOR INJECTION 10 ML IV (20:18)
[2025-10-13] MEDS: LIPITOR 40 MG PO (20:21)
[2025-10-13 21:28] LABS: Glucose - Point of Care 135 mg/dl (70-99)
[2025-10-13 23:12] VITALS: BP 133/93
[2025-10-14 03:37] VITALS: BP 149/88
[2025-10-14] MEDS: TYLENOL 650 MG PO (03:38)
[2025-10-14 07:08] VITALS: BP 144/95
[2025-10-14 08:21] LABS: Hematocrit 34.3 % (39.0-52.0); Hemoglobin 11.3 g/dL (13.0-18.0); Mean Corp Hgb Conc. 32.9 g/dL (33.0-37.0); Mean Corpuscular Volume 93.5 fL (80.0-94.0); Nucleated Red Blood Cells % 0 % (-); Platelet Count 231 10^3/uL (130-400); Red Cell Dist. Width 14.1 % (11.5-14.5)
--- NOTE | 2025-10-14 08:29 | W.PN.URO.CBU ---
Today's Communication / Plan
-
- Advise CIC q6-8 hrs while inpatient at time of discharge (3-4 times daily)
- Continue IV antibiotics pending UCx sensitivities
- Plan for outpatient CT Urogram and F/U with Dr. Tamez after discharge
D/w patient.
D/w Hospitalist.
Assessment / Plan
-
cUTI
H/o neurogenic bladder (asensate areflexic bladder on VUDS 05/2025)
H/o prostate cancer s/p XRT
New left hydroureteronephrosis
New onset a-fib
WBC mildly elevated
Cr WNL
UA +WBCs
BCx NG
UCx pending
CTAP w/o IV => marked left hydroureteronephrosis down to level of bladder w/o gross evidence of obstructing mass/stone/stricture
Given normal renal function, no indication for intervention for hydronephrosis - possibly secondary to reflux from known NGB.
Diagnosis
-
Date of Service: October 14, 2025
-
Patient Diagnosis:
cUTI
H/o neurogenic bladder (asensate areflexic bladder on VUDS 05/2025)
H/o prostate cancer s/p XRT
New left hydroureteronephrosis
New onset a-fib
Subjective
-
Performing CIC inpatient - urine clear.
Afebrile.
Objective
-
Vital Signs
Temp Pulse Resp BP Pulse Ox
99.9 F 94 18 149/88 96
10/14/25 03:37 10/14/25 03:37 10/14/25 03:37 10/14/25 03:37 10/14/25 03:37
Intake and Output
10/13/25 10/14/25 10/15/25
06:59 06:59 06:59
Intake Total 2640 / 2640
Output Total 1075 / 1075 2300 / 2300
Balance -1075 / -1075 340 / 340
Intake:
Oral fluids 1919 / 1919
IV fluids (Total) 720 / 720
Output:
Urine, Voided 425 / 425 750 / 750
Straight cath output 650 / 650 1550 / 1550
Other:
How many times incontinent 1
SATURATED amount urine
Number of approximated MODERATE 1
amounts of urine
Laboratory Results
10/14/25 08:10
Physical Exam
-
General - well developed, well nourished, no acute distress
Abdomen - soft, non-tender, non-distended, no CVAT
- WNL
Care Review
Data Reviewed
Discussed with: Hospitalist
CT Scan: Report Pers Reviewed and Image Pers Reviewed
Total Time Spent with Patient (in minutes): 20
[2025-10-14 08:35] LABS: Glucose - Point of Care 130 mg/dl (70-99)
[2025-10-14 08:49] LABS: ALT (SGPT) 31 U/L (0-50); AST (SGOT) 34 U/L (17-59); Albumin 3.2 g/dl (3.5-5.0); Alkaline Phosphatase 71 U/L (38-126); Blood Urea Nitrogen 28 mg/dl (9-20); Calcium 9.7 mg/dl (8.4-10.2); Carbon Dioxide 25 mmol/L (22-30); Chloride 107 mmol/L (98-107); Estimated Creatinine Clearance 89 ml/min; Glucose 117 mg/dl (70-99); Potassium 4.4 mmol/L (3.5-5.1); Sodium 135 mmol/L (135-145); Total Protein 6.4 g/dl (6.3-8.2); eGFR > 60.00
[2025-10-14] MEDS: NOVOLOG FLEXPEN-LOW RESISTANCE SC ×2 (09:42→16:55)
[2025-10-14] MEDS: TOPROL XL 50 MG PO (09:42)
[2025-10-14] MEDS: NORVASC 10 MG PO (09:43)
[2025-10-14] MEDS: ZESTRIL 2.5 MG PO (09:43)
[2025-10-14] MEDS: ASPIR LOW (ENTERIC COATED) 81 MG PO (09:43)
[2025-10-14] MEDS: FLOMAX 0.4 MG PO (09:43)
[2025-10-14 10:05] VITALS: BP 171/104; PULSE 128; O2SAT 95
[2025-10-14 11:00] VITALS: BP 127/89
[2025-10-14 12:19] LABS: Glucose - Point of Care 151 mg/dl (70-99)
--- NOTE | 2025-10-14 12:23 | W.PN.HOSP.TC ---
Addendum entered and electronically signed by Ha Young MD 10/14/25 13:03:
MAT
Continue bb started by Cardiology
2d echo
Hep gtt dc'ed as this is not afib and ac for stroke prevention not indicated.
Original Note:
Today's Communication/Plan
-
Assessment / Plan
Assessment / Plan
General: Well Nourished, No Apparent Distress and Comfortable
HEENT: Normocephalic and Atraumatic
Respiratory: Clear to Auscultation
Cardiac: S1/S2 and Irregular Rhythm
GI: Soft, Nontender and Nondistended
Genito-urinary: No Costovertebral Tender
Musculoskeletal: No Clubbing, No Cyanosis and No Edema
Neuro: Awake and AO x 3
Psych: Calm
Acute pyelo/uti
Ucx gram-negative bacilli
Bcx NGTD
IVAtb with Rocephin, de-escalate once urine culture speciate/sensitivities return
-Will need 2 weeks of antibiotics in total for complicated UTI
Uro following
-CIC q6h while inpatient and 3-4 time a day post discharge
SR with PAC's/PVC's
Admitted for Afib new onset, after reviewing ekg, do not believe so, will await final Cards recs
Monitor on tele
Check 2d echo
Currently on Hep gtt, would appreciate cards input if this should be continued or not
DMII
ssi
hold metformin
accuchecks
[id number]
hld
conitnue statin
htn
conitnue antihjypertensive
chornic ambulatory dysfunction
use a cane at baseline
Anticipated Discharge: 24 - 48 hours
Subjective/Interval History
-
Date of Service: October 14, 2025
Seen and examined. No new complaints. No acute overnight events.
at bedside
He is upset that he is unable to straight cath himself, the way he wants to
He only wants to straight cath himself once a day as opposed to multiple times a day if wants to do it at the bathroom
Objective Data
-
Labs:
Laboratory Results
10/14/25
08:10
WBC 11.3 H
Hgb 11.3 L
Hct 34.3 L
Plt Count 231
Sodium 135
Potassium 4.4
Chloride 107
Carbon Dioxide 25
BUN 28 H
Creatinine 0.9
Glucose 117 H
Calcium 9.7
Total Bilirubin 0.3
AST 34
ALT 31
Alkaline Phosphatase 71
Vital Signs:
Vital Signs
Temp Pulse Resp BP Pulse Ox
99.5 F 123 16 127/89 94
10/14/25 11:00 10/14/25 11:00 10/14/25 11:00 10/14/25 11:00 10/14/25 11:00
I&O
10/13/25 10/14/25 10/15/25
06:59 06:59 06:59
Intake Total 2640 / 2640
Output Total 1075 / 1075 2300 / 2300
Balance -1075 / -1075 340 / 340
--- NOTE | 2025-10-14 13:12 | W.PN.CD ---
Today's Communication / Plan
-
Continue metoprolol 50 mg daily
Echo tomorrow
He would like to follow-up with our office. I will request follow-up.
Impression / Plan
-
74-year-old man with hypertension, hyperlipidemia, diabetes, obesity, CVA in 2006, and neurogenic bladder who presents with back pain found to have UTI and hydroureteronephrosis. Course complicated by multifocal atrial tachycardia for which
cardiology is consulted.
Multifocal atrial tachycardia
- Likely triggered by acute pyelonephritis. Suspect rates will improve as infection resolves.
- Metoprolol XL 50 mg daily added this admission
- No role for anticoagulation. Heparin stopped.
- Echocardiogram tomorrow
UTI/hydroureteronephrosis - acute.
- per urology.
HTN - stable on meds, continue.
HLD - stable on meds, continue.
DM - per hospitalist.
CVA - in 2006.
- he thinks he was told he had an 'irregular heartbeat' and was on a blood thinner post CVA for 1 year.
Subjective: No CV complaints. He denies palpitations, chest pain, shortness of breath, and lightheadedness/dizziness.
Telemetry: MAT. HR's 80s�100s
Physical Exam
Vital Signs/Labs
Vital Signs
Temp Pulse Resp BP Pulse Ox
99.5 F 123 16 127/89 94
10/14/25 11:00 10/14/25 11:00 10/14/25 11:00 10/14/25 11:00 10/14/25 11:00
10/13/25 10/14/25 10/15/25
06:59 06:59 06:59
Actual Weight 240 lb 1 oz
10/14/25 08:10
10/14/25 08:10
APTT Cancelled 10/13/25 15:30
Triglycerides 163 mg/dl (10-149) H 10/13/25 09:23
LDL Cholesterol, Calc 42 mg/dl 10/13/25 09:23
VLDL Cholesterol, Calc 32 mg/dl (0-30) H 10/13/25 09:23
HDL Cholesterol 33 mg/dl 10/13/25 09:23
Physical Exam
Constitutional: No acute distress and Comfortable
Cardiovascular: Pedal edema is absent, Rhythm/rate is irregular, S1S2 is normal and Murmur/rub/gallop absent
Respiratory: Respiratory effort normal and Lungs clear to auscul.
Neuro/Psych: AO x 3
Data Reviewed
-
Date of Service: October 14, 2025
Medical Decision Making: Reviewed Test Results, Test Interpretation and Review of Case with other Provider
EKG: Tracing Personally Visualized and interpreted
Echo: Report Reviewed by me
Labs: Labs Reviewed by me
[2025-10-14] MEDS: NOVOLOG FLEXPEN-LOW RESISTANCE 1 UNITS SC (13:21)
[2025-10-14 16:55] LABS: Glucose - Point of Care 146 mg/dl (70-99)
[2025-10-14] MEDS: STERILE WATER FOR INJECTION 10 ML IV (19:28)
[2025-10-14] MEDS: ROCEPHIN 1000 MG IV (19:28)
[2025-10-14] MEDS: LIPITOR 40 MG PO (19:28)
[2025-10-14 21:27] LABS: Glucose - Point of Care 129 mg/dl (70-99)
[2025-10-14 23:03] VITALS: BP 134/72
--- NOTE | 2025-10-15 01:32 | PTCARENOTE ---
Pt refused to cath himself at but agreed to do so around 0130 since it had been roughly 12 hours since he last did it. Pt cathed for 900ml of tea colored urine. Pt reports he only caths himself once a day at home and does not understand why he is
being told to do it more often while he is in the hospital. Pt educated on the increased risk for a UTI when letting urine stay in the bladder for so long. Pt reports he will be returning to once a day when he is discharged.
[2025-10-15 07:40] VITALS: BP 141/82
[2025-10-15 08:44] LABS: Glucose - Point of Care 161 mg/dl (70-99)
[2025-10-15 08:55] LABS: Hematocrit 34.8 % (39.0-52.0); Hemoglobin 11.6 g/dL (13.0-18.0); Mean Corp Hgb Conc. 33.3 g/dL (33.0-37.0); Mean Corpuscular Volume 92.3 fL (80.0-94.0); Nucleated Red Blood Cells % 0 % (-); Platelet Count 255 10^3/uL (130-400); Red Cell Dist. Width 14.2 % (11.5-14.5)
[2025-10-15 09:23] LABS: ALT (SGPT) 62 U/L (0-50); AST (SGOT) 53 U/L (17-59); Albumin 3.1 g/dl (3.5-5.0); Alkaline Phosphatase 86 U/L (38-126); Blood Urea Nitrogen 23 mg/dl (9-20); Calcium 9.5 mg/dl (8.4-10.2); Carbon Dioxide 24 mmol/L (22-30); Chloride 106 mmol/L (98-107); Estimated Creatinine Clearance 100 ml/min; Glucose 114 mg/dl (70-99); Potassium 4.1 mmol/L (3.5-5.1); Sodium 136 mmol/L (135-145); Total Protein 6.4 g/dl (6.3-8.2); eGFR > 60.00
[2025-10-15] MEDS: ZESTRIL 2.5 MG PO (09:57)
[2025-10-15] MEDS: NOVOLOG FLEXPEN-LOW RESISTANCE 1 UNITS SC (09:57)
[2025-10-15] MEDS: FLOMAX 0.4 MG PO (09:58)
[2025-10-15] MEDS: NORVASC 10 MG PO (09:58)
[2025-10-15] MEDS: ASPIR LOW (ENTERIC COATED) 81 MG PO (09:58)
[2025-10-15] MEDS: TOPROL XL 50 MG PO (09:58)
--- NOTE | 2025-10-15 10:15 | CM ---
Addendum entered by Arcelia Cerrato 10/15/25 13:36:
Discharge home today
Spoke w/ spouse and patient bedside. Offered home PT, declined need at this time. Made aware that if they would like home care they can follow up w/ PCP
IMM verbally reviewed, copy provided, copy on chart
Plan: Home, no needs
Original Note:
Initial assessment completed. Patient is a 74-year-old male with history of neurogenic bladder who self caths at night only. He reports a 3-day history of decreased appetite with generalized weakness , fever, chills he also reports foul-smelling
urine.
Patient resides w/ spouse in a single story home w/ basement, no steps from back entrance. Patient is independent w/ the use of a cane usually but will use RW when he needs more support. Independent w/ ADLs and personal care. No SNF/HC hx.
Address, point of contact and insurance verified
PCP: Jasno Echeverria
Pharmacy: [facility]
Therapy assessed, home PT vs no needs. CM can offer home health prior to discharge
Plan: Home
--- NOTE | 2025-10-15 10:16 | W.PN.CD ---
Today's Communication / Plan
-
- Continue Metoprolol XL 50 mg daily added this admission
- Echocardiogram today, then can follow-up with Cardiology as an outpatient.
Impression / Plan
-
74-year-old man with hypertension, hyperlipidemia, diabetes, obesity, CVA in 2006, and neurogenic bladder who presents with back pain found to have UTI and hydroureteronephrosis. Course complicated by multifocal atrial tachycardia for which
cardiology is consulted.
Multifocal atrial tachycardia
- Likely triggered by acute pyelonephritis. Suspect rates will improve as infection resolves.
- Continue Metoprolol XL 50 mg daily added this admission
- Echocardiogram today, then can follow-up with Cardiology as an outpatient.
Heart murmur: Echocardiogram today.
UTI/hydroureteronephrosis - acute.
- Continue management as per Urology.
HTN - Fairly controlled; continue current medications.
HLD - Stable; continue atorvastatin.
DM - per hospitalist.
CVA - in 2006.
- he thinks he was told he had an 'irregular heartbeat' and was on a blood thinner post CVA for 1 year.
- May need long-term for monitoring (ILR); Cardiology can determine as outpatient.
Physical Exam
Vital Signs/Labs
Vital Signs
Temp Pulse Resp BP Pulse Ox
99.1 F 82 16 141/82 92
10/15/25 07:40 10/15/25 09:57 10/15/25 07:40 10/15/25 09:57 10/15/25 07:40
10/15/25 08:01
10/15/25 08:01
APTT Cancelled 10/13/25 15:30
Triglycerides 163 mg/dl (10-149) H 10/13/25 09:23
LDL Cholesterol, Calc 42 mg/dl 10/13/25 09:23
VLDL Cholesterol, Calc 32 mg/dl (0-30) H 10/13/25 09:23
HDL Cholesterol 33 mg/dl 10/13/25 09:23
Physical Exam
Constitutional: No acute distress and Comfortable
EENT: Anicteric and Moist mucous membranes
Cardiovascular: Rhythm & rate is regular, Pedal edema is absent, Systolic murmur present (2/) and S1S2 is normal
Respiratory: Respiratory effort normal and Rhonchi Present (Bibasilar)
GI: Soft
Neuro/Psych: AO x 3
Other: Skin (Warm, dry, intact)
Data Reviewed
-
Date of Service: October 15, 2025
Echo: Ordered by me
Medical Tests (PFT, Pathology etc): Discussed with Patient and Discussed with Family ( at bedside)
Labs: Labs Reviewed by me
[2025-10-15 12:33] LABS: Glucose - Point of Care 105 mg/dl (70-99)
[2025-10-15] MEDS: NOVOLOG FLEXPEN-LOW RESISTANCE SC (12:34)
--- NOTE | 2025-10-15 12:35 | W.PN.HOSP.TC ---
Addendum entered and electronically signed by Franco Ballard MD 10/17/25 14:14:
Acute pyelonephritis/UTI likely associated with self catheterization
Original Note:
Today's Communication/Plan
-
po abx
dc home
Assessment / Plan
Assessment / Plan
General: Well Nourished, No Apparent Distress and Comfortable
HEENT: Normocephalic and Atraumatic
Respiratory: Clear to Auscultation
Cardiac: S1/S2 and Irregular Rhythm
GI: Soft, Nontender and Nondistended
Genito-urinary: No Costovertebral Tender
Musculoskeletal: No Clubbing, No Cyanosis and No Edema
Neuro: Awake and AO x 3
Psych: Calm
Acute pyelo/uti
Ucx E. coli pansensitive
Bcx NGTD
IVAtb with Rocephin, de-escalate to p.o. on discharge.
-Will need 2 weeks of antibiotics in total for complicated UTI
Uro following
-CIC q6h while inpatient and 3-4 time a day post discharge
Multifocal atrial tachycardia
Metoprolol started
Monitor on tele
Echo with outpatient follow-up.
Anticoagulation discontinue
DMII
ssi
hold metformin
accuchecks
[id number]
hld
conitnue statin
htn
conitnue antihjypertensive
chornic ambulatory dysfunction
use a cane at baseline
More than 30 minutes spent in discharge including
Final examination of the patient
Summarizing hospital stay
Instructions for continuing care to all relevant caregivers
Preparation of discharge records, prescriptions, and referral forms
Total time spent (in minutes): 55
Anticipated Discharge: Today
Subjective/Interval History
-
Date of Service: October 15, 2025
sitting in chair
no complaints
Objective Data
-
Labs:
Laboratory Results
10/15/25
08:01
WBC 13.4 H
Hgb 11.6 L
Hct 34.8 L
Plt Count 255
Sodium 136
Potassium 4.1
Chloride 106
Carbon Dioxide 24
BUN 23 H
Creatinine 0.8
Glucose 114 H
Calcium 9.5
Total Bilirubin 0.4
AST 53
ALT 62 H
Alkaline Phosphatase 86
Vital Signs:
Vital Signs
Temp Pulse Resp BP Pulse Ox
99.1 F 82 16 141/82 92
10/15/25 07:40 10/15/25 09:57 10/15/25 07:40 10/15/25 09:57 10/15/25 07:40
I&O
10/14/25 10/15/25 10/16/25
06:59 06:59 06:59
Intake Total 2640 / 2640 840 / 840
Output Total 2300 / 2300 4000 / 4000
Balance 340 / 340 -3160 / -3160
--- NOTE | 2025-10-15 12:37 | W.DCSUMMARY ---
Discharge Summary
Discharge Data
Date of Admission: 10/12/25
Date of Discharge: 10/15/25
-
Pending Results: No
Hospital Course
74-year-old male past medical history of prostate cancer s/p radiation,� neurogenic bladder and self catheterizes, hypertension, hypercholesteremia, diabetes, CVA, presenting with 3 days of decreased appetite, generalized weakness and chills. CT
abdomen pelvis shows moderate to marked left hydroureteronephrosis. �No ureteral calculus. �Possible subtle focal wall thickening at the left utero vesicular junction. �Perinephric soft tissue stranding left greater than right . Patient was eval by
urology. Patient was started on broad-spectrum antibiotics. Patient urine culture finalized with E. coli pansensitive. Urology recommended intermittent catheterization. Patient was at times noncompliant with it. Patient remained afebrile. IV
antibiotic were transitioned to p.o. on discharge. Patient also with abnormal EKG initially concern for atrial fibrillation and cardiology was consulted. Per cardiology patient with multifocal atrial tachycardia and heparin drip was discontinued.
Patient was started on metoprolol. Patient wanted to follow-up outpatient with urology.
Discharge Plan
-
Patient Disposition: Home (Routine Discharge)
Discharge Diagnosis/Procedures: E.coli UTI
Pyelopnehritis
Multifocal Atrial Tachycardia
left hydroureteronephrosis
Condition: Good
Diet: As tolerated
Activity: As tolerated
Activity Restrictions/Additional Instructions:
Presented with malodorous urine with associated decreased appetite generalized weakness. CT abdomen pelvis demonstrating left hydroureteronephrosis and perinephric soft tissue stranding left greater than right cannot exclude infection. Urine
analysis consistent with UTI and was admitted for pyelonephritis and started on IV antibiotics with a positive urine culture. Evaluated by urology which recommended straight cath every 6-8 hours. Need outpatient urology follow up for
urogram/dynamic studies for neurogenic bladder history. During the initial workup found to have an EKG that was concerning for atrial fibrillation. Cardiology evaluated did not believe this was atrial fibrillation however did believe this was
consistent with multifocal atrial tachycardia therefore increased beta-blockers and heparin drip was discontinued.
CTAP
IMPRESSION:
Moderate to marked left hydroureteronephrosis. No ureteral calculus. Exact etiology uncertain. Possible subtle focal wall thickening at the left ureterovesical junction. No bladder calculus.
Perinephric soft tissue stranding, left greater than right. Cannot exclude proposed infection.
Vascular calcification versus nonobstructing intrarenal calculi, bilaterally.
Bilateral renal cysts, as described.
Tiny foci of gas within the urinary bladder. Possible considerations include infection, recent instrumentation, or enterovesical fistula. Clinical correlation necessary.
Diverticulosis without acute diverticulitis. No bowel obstruction.
Scoliosis. Advanced multilevel discogenic and facet degenerative changes. No compression deformity.
Referrals:
Marc Wynne MD [Active, Cardiology] - in three to four weeks
Jason Echeverria MD [Family Provider, Family Practice] - in less than 1 week
Hermelindo Tamez MD [Active, Urology] - in 4 days
Additional Discharge Medication Instructions: New start toprol xl 50mg daily
Complete antibiotic course as prescribed
Prescriptions:
New
metoprolol succinate 50 mg Tablet Extended Release 24 Hr
50 mg PO DAILY Qty: 30 0RF
cephalexin 500 mg capsule
500 mg PO QID 12 Days Qty: 48 0RF
Continued
Aspir-81
81 mg PO DAILY
tamsulosin 0.4 mg Capsule
0.4 mg PO DAILY
amlodipine 10 mg tablet
10 mg PO DAILY
metformin 1,000 mg tablet
1,000 mg PO BID
lisinopril 2.5 mg tablet
2.5 mg PO DAILY
Lipitor
40 mg PO HS
Tylenol Arthritis
1,000 mg PO BID
diclofenac potassium
25 mg PO BID PRN (Reason: arthritic pain)
Discharge Orders:
Discharge Patient (As Directed); Ordered 10/15/25
Ordered By: Franco Ballard
Discharge Date and Time
Discharge Date/Time: 10/15/25 14:04
Print Language: ARABIC
[2025-10-15 13:14] VITALS: BP 160/82
--- NOTE | 2025-10-15 13:46 | PN.CDI ---
CDI
- -
CDI:
Physician Documentation Request
Admit Date: 10/12/25 21:27
Dear Doctor Nellie,
Please review the following and provide your response in the progress notes.
Clinical Indicators:
Pt admitted with Acute pyelonephritis/UTI
Documented per ED, ' neurogenic bladder and self caths... UTI (urinary tract infection), Acute left hydronephrosis..'
Progress note 10/15, ' Acute pyelo/utiUcx E. coli pansensitiveIVAtb with Rocephin, de-escalate to p.o. on discharge.Will need 2 weeks of antibiotics in total for complicated UTI..[facility]IC q6h while inpatient and 3-4 time a day post discharge
Please clarify the relationship between these conditions:
Yes, _UTI__ is related to/associated with/due to Self catheterization ___.
No, _UTI __ is not related to/associated with/due to _Self Catheterization __ but it is due to ___. (Please specify)
Other ( please specify)
Use of terms such as suspected, likely, concern for, or probable (associated with a specific diagnosis that is being evaluated, monitored, or treated as if it exists) are acceptable and can be coded in the inpatient setting, when documented at the
time of discharge.
Thank you,
Smiley Cyr RN
CDI Specialist
Roby Text
Please use your independent medical judgment in providing your response.
== END 2025-10-15 14:04 | disposition home or self-care (01) | DRG 699 ==
LOC: 4 EAST ACU 21:27
PROVIDERS: Clinical Nurse Specialist Family Health; Student in an Organized Health Care Education/Training Program; ADMITTING PHYSICIAN Hospitalist; ATTENDING PHYSICIAN Hospitalist; CONSULT PHYSICIAN Student in an Organized Health Care Education/Training Program; CONSULT PHYSICIAN Surgery; EMERGENCY PHYSICIAN Emergency Medicine; FAMILY PHYSICIAN Family Medicine
DX: T83.518A Infection and inflammatory reaction due to other urinary catheter, initial encounter (principal); I47.19 Other supraventricular tachycardia; N13.6 Pyonephrosis; Z11.52 Encounter for screening for COVID-19; I48.91 Unspecified atrial fibrillation; I10 Essential (primary) hypertension; Z79.84 Long term (current) use of oral hypoglycemic drugs; E11.40 Type 2 diabetes mellitus with diabetic neuropathy, unspecified; Z86.73 Personal history of transient ischemic attack (TIA), and cerebral infarction without residual deficits; Z79.82 Long term (current) use of aspirin; Z79.899 Other long term (current) drug therapy; Y84.6 Urinary catheterization as the cause of abnormal reaction of the patient, or of later complication, without mention of misadventure at the time of the procedure
CPT/HCPCS: 51701; 51798; 74176; 80053; 80061; 81003; 81015; 82962; 83036; 83605; 83690; 84443; 85025; 85730; 87040; 87077; 87086; 87186; 87502; 87811; 93005; 93306; 96361; 96365; 96366; 96375; 97162; 99291